=== PATIENT | female | born 1985 | race Caucasian/White ===

== ENCOUNTER 2016-03-08 21:33 | Emergency (ER) | payer SELFPAY ==
[2016-03-08 21:58] VITALS: TEMP 98.9; BMI 25.3
[2016-03-08] MEDS ORDERED: MORPHINE 4 MG/ML INJECTION IV ONE ×2 (22:24→23:31)
[2016-03-08] MEDS ORDERED: NS 1,000 ML IV ONE (22:24)
[2016-03-08] MEDS ORDERED: ONDANSETRON HCL 4 MG/2 ML VIAL IV ONE (22:24)
[2016-03-08 22:40] LABS: AUTOMATED BASOPHIL 0.6 % (0-2); AUTOMATED EOSINOPHIL 1.6 % (0-5); AUTOMATED LYMPH 47.7 % (17-44); AUTOMATED MONOCYTE 5.2 % (3-10); AUTOMATED NEUTROPHIL 44.9 % (45-76); MPV 7.7 fL (7.4-10.4)
[2016-03-08 22:41] LABS: RBC/URINE 0-2 (0-5)
[2016-03-08 22:42] LABS: LEUKOCYTES/URINE NEG (NEGATIVE); NITRITE/URINE NEG (NEGATIVE); URINE OCCULT BLOOD NEG (NEG/TRACE)
[2016-03-08 22:54] LABS: BLOOD UREA NITROGEN 15 MG/DL (7-17); CALCIUM 9.8 MG/DL (8.4-10.2); CALCULATED OSMOLALITY 273 MOs/Kg (270-290); CHLORIDE 106 mEq/L (98-107); GLUCOSE 84 MG/DL (70-99); SODIUM LEVEL 142 mEq/L (137-146); TOTAL PROTEIN 7.7 G/DL (6.3-8.2)
[2016-03-08] MEDS ORDERED: Pharmacy Review for Metformin - IV Contrast Given SCH (23:00)
--- NOTE | 2016-03-08 23:52 | EDPRACDOC ---
- General Information Chief Complaint: Abdominal Pain Stated Complaint: PELVIC PAIN Time Seen by Provider: 03/08/16 22:18 Information Source: Patient Mode Of Arrival: Car Home Medications: Home Medications Linaclotide [Linzess] 145 mcg PO Q48H 01/20/16 Meloxicam [Mobic] 15 mg PO DAILY 01/20/16 Unk Celexa 0 mg PO .SEE COMMENT 01/20/16 Unk Diazepam 0 mg PO .SEE COMMENTS 01/20/16 Hydrocodone/Acetaminophen [Lortab 5-325 mg Tablet] 1 each PO Q4H PRN #15 tablet 01/21/16 Promethazine [Phenergan] 25 mg PO Q6H PRN #10 tab 01/21/16 Ondansetron [Zofran Odt] 4 mg PO Q6H PRN #20 tab.rapdis 03/09/16 Oxycodone Immediate Release [Oxycodone Immediate Release (OxyIR)] 5 mg PO Q6H PRN #20 tab 03/09/16 Phenazopyridine HCl [Pyridium] 200 mg PO TID #30 tablet 03/09/16 Sulfamethoxazole/Trimethoprim [Bactrim Ds Tablet] 1 tab PO BID #14 tab 03/09/16 Allergies/Adverse Reactions: Allergies Allergy/AdvReac Type Severity Reaction Status Date / Time azithromycin [From Zithromax] Allergy Unknown Verified 01/20/16 22:07 codeine Allergy Unknown Verified 01/20/16 22:07 hydromorphone [From Dilaudid] Allergy Unknown Verified 01/20/16 22:07 - History of Present Illness Onset: 4 hours [employer] Last Menstrual Period: 1 week : (unsure) ED Past Medical History - Patient Medical History GI/ History: Reports: IBD Psychological History: Reports: Anxiety. Denies: Depression Systemic History: Comment Only: Diabetes (HYPOGLYCEMIA) - Social Medical History Smoking Status: Never smoker - Physical Exam Constitutional: Alert (Awake) Oriented to: Time, Person, Place Last recorded Vital Signs: Last Vital Signs Temp 98.9 F 03/08/16 21:53 Pulse 74 03/09/16 00:24 Resp 18 03/09/16 00:24 BP 106/60 03/09/16 00:24 Pulse Ox 99 03/09/16 00:24 Oxygen Pulse Oxygen Saturation 99 O2 Device Room Air Oxygen Flow Rate Fraction of Inspired Oxygen ( FIO2) - HEENT Head: Normal ( normocephalic) Eye Exam: Normal (PERRL, EOMI, Sclera white) Oropharynx: Normal (Pharynx:Moist without exudate,Gums-no swelling) Nose: No Symptoms Reported (septum midline) Neck: Normal (FROM, trachea at midline) - Respiratory/Cardiovascular Respiratory: Normal - CTA (BBS clear to auscultation without adventitious sounds ) Cardiovascular: Normal (RRR without murmur, gallop or rub) - GI Auscultation: Normal (NABS) Palpation: Normal (Soft,No rebound or guarding, non distended) Tenderness: Moderate, Suprapubic Ramirez's Sign: Negative Rectal Exam: Deferred - Bladder: Normal External: Normal Vagina: Normal Cervix: Normal. negative: Open Uterus: Normal size Adnexa: Bilateral: Tender - Musculoskeletal Back: Normal (Non-Tender) Extremities: Normal (Normal tone, Pulses 2+ No cyanosis or edema, FROM) - Integumentary Skin: Normal, Warm, Dry Lymphatics: Normal (no adenopathy) - Neurologic Memory Impaired: Normal Motor Function: Normal (Normal tone, Pulses 2+ No cyanosis or edema, FROM) Cranial Nerve: Normal (CN II-X11 intact sensation, strength 5/5) Cerebellar: Normal Mood Description: Normal Perception: Normal - Results 03/08/16 22:30 03/08/16 22:30 WBC 12.0 xk/uL (3.8-10.8) H 03/08/16 22:30 RBC 4.38 xM/uL (4.20-5.40) 03/08/16 22:30 Hgb 14.4 g/dL (12.0-16.0) 03/08/16 22:30 Hct 41.8 % (36-47) 03/08/16 22:30 MCV 95 fL (81-99) 03/08/16 22:30 MCH 32.8 pg (27-32) H 03/08/16 22:30 MCHC 34.4 g/dl (33-36) 03/08/16 22:30 RDW 13.4 % (11.5-14.5) 03/08/16 22:30 Plt Count 288 xk/uL (130-400) 03/08/16 22:30 MPV 7.7 fL (7.4-10.4) 03/08/16 22:30 Neut % (Auto) 44.9 % (45-76) L 03/08/16 22:30 Lymph % (Auto) 47.7 % (17-44) H 03/08/16 22:30 Craig % (Auto) 5.2 % (3-10) 03/08/16 22:30 Eos % (Auto) 1.6 % (0-5) 03/08/16:30 Baso % (Auto) 0.6 % (0-2) 03/08/16 22:30 Absolute Neuts (auto) 5.28 xk/uL (1.7-8.2) 03/08/16 22:30 Absolute Lymphs (auto) 5.64 xk/uL (0.65-4.75) H 03/08/16 22:30 Sodium 142 mEq/L (137-146) 03/08/16 22:30 Potassium 3.8 mEq/L (3.5-5.1) 03/08/16 22:30 Chloride 106 mEq/L (98-107) 03/08/16 22:30 Carbon Dioxide 24 mMOL/L (22-33) 03/08/16 22:30 Anion Gap 16 mEq/L (8-16) 03/08/16 22:30 BUN 15 MG/DL (7-17) 03/08/16 22:30 Creatinine 0.80 MG/DL (0.52-1.04) 03/08/16 22:30 Estimated GFR (MDRD) > 60 mL/min (>=60) 03/08/16 22:30 Glucose 84 MG/DL (70-99) 03/08/16 22:30 Calculated Osmolality 273 MOs/Kg (270-290) 03/08/16 22:30 Calcium 9.8 MG/DL (8.4-10.2) 03/08/16 22:30 Total Bilirubin 0.4 MG/DL (0.2-1.3) 03/08/16 22:30 AST 21 IU/L (14-36) 03/08/16 22:30 ALT 22 IU/L (9-52) 03/08/16 22:30 Alkaline Phosphatase 63 IU/L (38-126) 03/08/16 22:30 Total Protein 7.7 G/DL (6.3-8.2) 03/08/16 22:30 Albumin 4.5 G/DL (3.5-5.0) 03/08/16 22:30 Lipase 244 U/L (23-300) 03/08/16 22:30 Urine Color Yellow 03/08/16 22:15 Urine Clarity Cldy 03/08/16 22:15 Urine pH 6.0 (5.0-8.0) 03/08/16 22:15 Ur Specific [place] 1.020 (1.003-1.035) 03/08/16 22:15 Urine Protein Neg (NEG/TRACE) 03/08/16 22:15 Urine Glucose (UA) Neg (NEGATIVE) 03/08/16 22:15 Urine Ketones Neg (NEGATIVE) 03/08/16 22:15 Urine Occult Blood Neg (NEG/TRACE) 03/08/16 22:15 Urine Nitrite Neg (NEGATIVE) 03/08/16 22:15 Urine Bilirubin Neg (NEGATIVE) 03/08/16 22:15 Urine Urobilinogen 0.2 MG/DL (0-1) 03/08/16 22:15 Ur Leukocyte Esterase Neg (NEGATIVE) 03/08/16 22:15 Urine RBC 0-2 (0-5) 03/08/16 22:15 Urine WBC 2-5 (0-5) 03/08/16 22:15 Ur Epithelial Cells 4+ 03/08/16 22:15 Urine Bacteria Few (NEG/FEW) 03/08/16 22:15 Urine Mucus Sm amt (NEG/OCC) 03/08/16 22:15 Urine Test Neg (NEGATIVE) 03/08/16 22:15 Microbiology 03/08/16 23:40 Trichomonas [place] - Final Vaginal 03/08/16 23:40 EL Preparation - Final Vaginal Lab Results 03/08/16 03/08/16 03/08/16 22:30 22:30 22:15 WBC 12.0 H RBC 4.38 Hgb 14.4 Hct 41.8 MCV 95 MCH 32.8 H MCHC 34.4 RDW 13.4 Plt Count 288 MPV 7.7 Neut % (Auto) 44.9 L Lymph % (Auto) 47.7 H Craig % (Auto) 5.2 Eos % (Auto) 1.6 Baso % (Auto) 0.6 Absolute Neuts (auto) 5.28 Absolute Lymphs (auto) 5.64 H Sodium 142 Potassium 3.8 Chloride 106 Carbon Dioxide 24 Anion Gap 16 BUN 15 Creatinine 0.80 Estimated GFR (MDRD) > 60 Glucose 84 Calculated Osmolality 273 Calcium 9.8 Total Bilirubin 0.4 AST 21 ALT 22 Alkaline Phosphatase 63 Total Protein 7.7 Albumin 4.5 Lipase 244 Urine Color Urine Clarity Urine pH Ur Specific [place] Urine Protein Urine Glucose (UA) Urine Ketones Urine Occult Blood Urine Nitrite Urine Bilirubin Urine Urobilinogen Ur Leukocyte Esterase Urine RBC Urine WBC Ur Epithelial Cells Urine Bacteria Urine Mucus Urine Test Neg 03/08/16 22:15 WBC RBC Hgb Hct MCV MCH MCHC RDW Plt Count MPV Neut % (Auto) Lymph % (Auto) Craig % (Auto) Eos % (Auto) Baso % (Auto) Absolute Neuts (auto) Absolute Lymphs (auto) Sodium Potassium Chloride Carbon Dioxide Anion Gap BUN Creatinine Estimated GFR (MDRD) Glucose Calculated Osmolality Calcium Total Bilirubin AST ALT Alkaline Phosphatase Total Protein Albumin Lipase Urine Color Yellow Urine Clarity Cldy Urine pH 6.0 Ur Specific [place] 1.020 Urine Protein Neg Urine Glucose (UA) Neg Urine Ketones Neg Urine Occult Blood Neg Urine Nitrite Neg Urine Bilirubin Neg Urine Urobilinogen 0.2 Ur Leukocyte Esterase Neg Urine RBC 0-2 Urine WBC 2-5 Ur Epithelial Cells 4+ Urine Bacteria Few Urine Mucus Sm amt Urine Test Decision Time to Discharge: 00:57 - Departure Disposition: Home Condition: Stable Final Diagnosis: Cystitis Instructions: Urinary Tract Infection in Women (ED) Education/Counseling Given To: Patient Education/Counseling Given Regarding: Diagnosis, Treatment, Prognosis, Follow Up Referrals: Bryson Negrete MD [Staff Physician] - One Week Prescriptions: Ondansetron [Zofran Odt] 4 mg PO Q6H PRN #20 tab.rapdis PRN Reason: Nausea/Vomiting Oxycodone Immediate Release [Oxycodone Immediate Release (OxyIR)] 5 mg PO Q6H PRN #20 tab PRN Reason: Pain Phenazopyridine HCl [Pyridium] 200 mg PO TID #30 tablet Sulfamethoxazole/Trimethoprim [Bactrim Ds Tablet] 1 tab PO BID #14 tab Additional Instructions: INCREASE FLUID INTAKE. FOLLOW UP WITH PRIMARY CARE PROVIDER NEXT WEEK. TAKE ALL ANTIBIOTICS PRESCRIBED. RETURN TO THE ED FOR WORSENING SYMPTOMS OR CONCERNS.
--- NOTE | 2016-03-09 00:41 | DIRPT ---
CLINICAL DATA: Acute onset of pelvic pain, left greater than right, with fever. Leukocytosis. Initial encounter. EXAM: CT ABDOMEN AND PELVIS WITH CONTRAST TECHNIQUE: Multidetector CT imaging of the abdomen and pelvis was performed using the standard protocol following bolus administration of intravenous contrast. CONTRAST: 100 mL of Isovue 370 IV contrast COMPARISON: CT of the abdomen and pelvis from 01/21/2016 FINDINGS: The visualized lung bases are clear. The liver and spleen are unremarkable in appearance. The gallbladder is within normal limits. The pancreas and adrenal glands are unremarkable. The kidneys are unremarkable in appearance. There is no evidence of hydronephrosis. No renal or ureteral stones are seen. No perinephric stranding is appreciated. No free fluid is identified. The small bowel is unremarkable in appearance. The stomach is within normal limits. No acute vascular abnormalities are seen. The appendix is normal in caliber, without evidence of appendicitis. The colon is unremarkable in appearance. The bladder is mildly distended. Slight bladder wall thickening could reflect mild cystitis. The uterus is grossly unremarkable in appearance. The ovaries are relatively symmetric. No suspicious adnexal masses are seen. No inguinal lymphadenopathy is seen. No acute osseous abnormalities are identified. IMPRESSION: 1. Slight bladder wall thickening could reflect mild cystitis, depending on the patient's symptoms. 2. Otherwise unremarkable contrast-enhanced CT of the abdomen and pelvis. Electronically Signed By: Elia Shannon M.D. On: 03/09/2016 00:38
[2016-03-09 01:18] VITALS: BP 104/66; PULSE 76
[2016-03-12 05:38] LABS: CHLAMY BY NUCLEIC ACID AMP Negative (Negative)
[2016-03-12 06:44] LABS: GC BY NUCLEIC ACID AMP Negative (Negative)
== END 2016-03-09 01:17 | disposition home or self-care (01) ==
LOC: ED 21:33
DX: N30.90 Cystitis, unspecified without hematuria (principal)
CPT/HCPCS: 36415; 74177; 80053; 81001; 81025; 83690; 85025; 87210; 87220; 87491; 87591; 96361; 96374; 96375; 96376; 99284; A9698; J2270; J2405